=== PATIENT | male | born 1940 | race Two or more races ===

== ENCOUNTER 2025-06-02 09:19 | Emergency (ER) | payer OTHER, MEDICAID, SELFPAY ==
[2025-06-02 09:21] VITALS: BMI 21.9
[2025-06-02 09:33] VITALS: BP 99/59; PULSE 134; RESP 22; TEMP 36.9; O2SAT 98
--- NOTE | 2025-06-02 09:42 | EKG_ITS ---
[facility] Test Date: 2025-06-02 Pat Name: TRANG RODRIGUEZ Department: Room: - Gender: Male Spares Scheduler: : 1940 Requested By: Guilherme Claros Order Number: [id number] Reading MD: Guilherme Claros Measurements Intervals Marydel Rate: 90 P: 84 ND: 146 QRS: -4 QRSD: 140 T: 46 QT: 358 QTc: 440 Interpretive Statements SINUS RHYTHM RIGHT BUNDLE BRANCH BLOCK [120+ ms QRS DURATION, UPRIGHT V1, 40+ ms S IN I/aVL/V4/V5/V6] Compared to ECG 04/26/2024 21:41:14 Right bundle-branch block now present Atrial fibrillation no longer present Incomplete right bundle-branch block no longer present /store/S0/[id number].pdf
--- NOTE | 2025-06-02 09:42 | XR_ITS ---
Examination: CT abdomen and pelvis without contrast. Coronal 3-D reconstructions. Sagittal 2-D reconstructions. Date and time of exam:June 10002024, 1046 hrs., Comparison April 27, 2024 Indications: Lower abdominal pain with rectal bleeding beginning 10 days ago, history infrarenal abdominal aortic aneurysm CTDI: vol (mGy): 6.15 DLP: (mGycm): 371 Technique: Axial images of the abdomen have been obtained, 3 mm slice thickness Intravenous contrast material has not been administered. Low dose protocols were performed. One or more of the following dose reduction techniques were used; automated exposure control, adjustment of the mA and/or KV according to patient size, use of iterative reconstruction technique. Findings: Mild enlargement cardiac contour. Old right-sided fractures. No liver or splenic lesion. Gallbladder sludge versus small stones. No pancreatic or adrenal mass. Minimal perinephric stranding. No renal or ureteral calculi, no hydronephrosis Infrarenal abdominal aortic aneurysm, AP dimension 4.3 cm mediolateral dimension 4.1 cm Multiple fluid distended air distended small bowel loops Rectal wall axial image 212 is thickened Colonic diverticulosis Abundant stool in the colon Transverse prostate dimension 4.0 cm Fat-containing inguinal hernias Impression: Recommend hepatobiliary sonography to differentiate gallbladder sludge, small stones Infrarenal abdominal aortic aneurysm AP dimension 4.3 cm mediolateral dimension 4.1 cm Multiple mild to moderately fluid distended small bowel loops, consider ileus, enteritis, ileus early small bowel obstruction is a clinical consideration, recommend 3 view abdominal series follow-up Colonic diverticulosis, no diverticulitis Rectal wall is thickened, differential would include proctitis, early rectal tumor not excluded, recommend direct inspection
--- NOTE | 2025-06-02 09:42 | XR_ITS ---
Examination: AP chest single view Technique: AP semiupright portable chest single view Date and time: June 02, 10:52 AM, comparison April 26, 2024 Indications: Onset chest pain today by pain one year Findings: Mild prominence cardiac contour. Ectatic enlarged thoracic aorta. No pulmonary edema or pneumonia. Multiple old right-sided fractures. Impression: Mild prominence cardiac contour. No pneumonia or pulmonary edema.
--- NOTE | 2025-06-02 09:43 | PD.EDRME ---
Rapid Medical Screening Exam RME Arrival date/time: 06/02/25 09:19 84-year-old male with a history of atrial fibrillation presents to the emergency room with a chief complaint of rectal bleeding, 10 out of 10 abdominal pain, shortness of breath x 1 week I have greeted and performed a focused initial assessment of this patient. A comprehensive ED assessment and evaluation of the patient, analysis of all test results, and completion of the medical decision making process will be conducted by additional ED providers. Chief Complaint: Abdominal Pain Time Seen by Provider: 06/02/25 09:31 Vital signs: Vital Signs Temperature 98.5 F 06/02/25 09:33 Pulse Rate 134 H 06/02/25 09:33 Respiratory Rate 22 H 06/02/25 09:33 Blood Pressure 99/59 L 06/02/25 09:33 Pulse Oximetry (%) 98 06/02/25 09:33 Oxygen Delivery Method Room Air 06/02/25 09:33 Vital signs reviewed by provider: Yes
[2025-06-02 09:52] VITALS: BP 92/65; PULSE 134; RESP 27; TEMP 37.3; O2SAT 99
[2025-06-02] MEDS: ONDANSETRON INJ 2 MG/ML INJ 2 ML 4 MG IVP (10:29)
[2025-06-02] MEDS: fentaNYL CIT INJ 50 mCg/ML AMP 2ML 100 MCG IVP (10:30)
[2025-06-02] MEDS: SODIUM CHLORIDE 0.9% 1000 ML 1,000 ML 999 ML IV (10:31)
[2025-06-02 10:34] LABS: Basophils # (Auto) 0.1 Thou/mm3 (0.0-0.2); Basophils % (Auto) 1 % (0-2.5); Eosinophils # (Auto) 0.0 Thou/mm3 (0.0-0.5); Eosinophils % (Auto) 1 % (0-10); Hematocrit 28.6 % (41.0-53.0); Hemoglobin 9.7 g/dL (13.5-16.0); Immature Granulocytes Auto 0.31 Thou/mm3 (0.00-0.00); Lymphocytes # (Auto) 1.9 Thou/mm3 (1.0-4.8); Lymphocytes % (Auto) 31 % (10-50); Mean Corpuscular HGB Conc 33.9 g/dl (31.0-37.0); Mean Corpuscular Hemoglobin 33.3 pg (25.0-35.0); Mean Corpuscular Volume 98 fL (80-100); Monocytes # (Auto) 0.6 Thou/mm3 (0.0-0.8); Monocytes % (Auto) 10 % (0-12); Neutrophils # (Auto) 3.3 Thou/mm3 (1.8-7.7); Neutrophils % (Auto) 52 % (37-80); Nucleated Red Blood Cell # 0.00 Thou/mm3 (0.00-0.00); Nucleated Red Blood Cell % 0 /100 WBC (0); Platelet Count 300 Thou/mm3 (140-440); RDW Standard Deviation 61.5 fL (35.1-43.9); Red Blood Count 2.91 Miln/mm3 (4.50-5.90); White Blood Count 6.3 Thou/mm3 (3.8-10.6)
[2025-06-02 10:45] LABS: B-Type Natriuretic Peptide 56 pg/mL (0-100)
[2025-06-02 10:47] LABS: INR 1.0 (0.9-1.3); Partial Thromboplastin Time 21.4 Seconds (22.0-36.0); Prothrombin Time 11.4 Seconds (9.0-12.2)
[2025-06-02 10:57] LABS: Alanine Aminotransferase 19 U/L (10-49); Albumin, Serum 3.0 gm/dL (3.4-4.8); Albumin/Globulin Ratio 1.1 (1.2-2.2); Alkaline Phosphatase 81 U/L (46-116); Anion Gap 11 (7-16); Aspartate Amino Transferase 26 U/L (0-34); BUN/Creatinine Ratio 21 Ratio (12-20); Bilirubin,Total 0.3 mg/dL (0.3-1.2); Blood Urea Nitrogen 17 mg/dL (9-23); Calcium 8.6 mg/dL (8.3-10.6); Calcium (Corrected) 9.4 mg/dL (8.5-10.1); Carbon Dioxide 21.2 mMol/L (20.0-31.0); Chloride 103 mMol/L (98-107); Creatinine (Component) 0.8 mg/dL (0.6-1.3); Estimated Creatinine Clearance 65.5 mL/min (>60); Globulin 2.8 gm/dL (2.3-3.5); Glucose 94 mg/dL (74-106); Lipase 35 U/L (12-53); Osmolality,Calculated 271 (275-295); Potassium 4.5 mMol/L (3.4-5.1); Sodium 135 mMol/L (136-145); Total Protein 5.8 gm/dL (5.7-8.2); Troponin I < 0.002 ng/mL (0.0-0.045); eGFR > 60 See Note
[2025-06-02 11:08] VITALS: BP 105/75; PULSE 86; RESP 13; TEMP 36.5; O2SAT 96
[2025-06-02 11:27] LABS: Alcohol, Blood Medical < 3.0 mg/dL (0-10.0)
[2025-06-02 12:40] LABS: Collection Type, Urine Clean Catch
[2025-06-02 13:13] LABS: Bilirubin,Urine Negative (Negative); Clarity,Urine Clear (Clear/Hazy); Color,Urine Yellow (Lt Yel-Yel); Glucose, Urine Negative (Negative); Ketones,Urine Negative (Negative)
[2025-06-02 13:14] LABS: Blood,Urine Negative (Negative); Culture Indicated,Urine Not Indicated; Leukocyte Esterase,Urine Negative (Negative); Nitrite,Urine Negative (Negative); PH,Urine 6.0 (5.0-7.0); Protein,Urine Negative (Neg - Trace); RBC,Urine 1 /hpf (0-3); Specific Gravity,Urine 1.028 (1.001-1.035); Urobilinogen,Urine Negative mg/dL (0.0-1.0)
[2025-06-02 13:15] LABS: Squamous Epithelial Cell,Urine 1 /hpf (0-5); WBC,Urine 1 /hpf (0-5)
[2025-06-02 13:16] VITALS: BP 108/71; PULSE 90; RESP 18; O2SAT 98
--- NOTE | 2025-06-02 14:07 | EDNOTE_ITS ---
ED Abdominal Pain RME/HPI General Chief Complaint: Abdominal Pain Stated complaint: ABD PAIN X 3 MON, BODY ACHE X 1 YR, MOUTH PAIN Time seen by provider: 06/02/25 09:31 Arrival date/time: 06/02/25 09:19 RME / HPI RME / HPI narrative: 06/02/25 09:19 84-year-old male with a history of atrial fibrillation presents to the emergency room with a chief complaint of rectal bleeding, 10 out of 10 abdominal pain, shortness of breath x 1 week I have greeted and performed a focused initial assessment of this patient. A comprehensive ED assessment and evaluation of the patient, analysis of all test results, and completion of the medical decision making process will be conducted by additional ED providers. DR. ALICIA MAIN ED EVALUATION 84 year old male with a history of hypertension and atrial fibrillation presents to the ED with complaint of abdominal pain. States the pain began intermittently approximately one month ago and worsening in the last week. The pain is described as aching and located most to the epigastric region, rating as moderate. Associated with subjective fevers, a change in stool consistency, and generalized weakness. The patient reports that his stool has become sticky and adheres to the toilet bowl. Over the past four days, he has been consuming only water and milk due to oral pain. No other associated symptoms reported. Related Data Previous Rx's ?Medication ?Instructions ?Recorded omeprazole 20 mg capsule,delayed 20 mg PO QDAY #30 cap s 05/04/24 release quetiapine 100 mg tablet 50 mg (1/2 x 100 mg) PO QDAY #30 05/04/24 tabs Allergies Allergy/AdvReac Type Severity Reaction Status Date / Time No Known Allergies Allergy Verified 06/02/25 09:23 Review of Systems Review of Systems Systems Reviewed: All systems reviewed, normal except as documented Past Medical History Past Medical History MUSCULOSKELETAL: Positive Musculoskeletal Disorders, Arthritis and Osteoporosis ENT: Positive Cataracts Family History FAMILY HISTORY: Negative Family Neurologic Problems, Family Psychiatric Problems, Family Respiratory Disorders, Family Cardiac Disorders, Family Gastrointestinal Problems, Family Cancer, Family Surgery or Family Anesthesia Reaction Social History SMOKING STATUS: Never smoker ED Exam Narrative Physical exam: GENERAL APPEARANCE: alert and oriented x 4, well-developed, well-nourished, no acute distress HEENT: Normocephalic, atraumatic; pupils equal, round, reactive to light; EOMI; mucous membranes pink, moist; oropharynx clear NECK: Supple LUNGS: CTABL; no wheezes, no rales, no rhonchi HEART: Regular rate, regular rhythm; normal S1, S2; no murmurs ABDOMEN: distended; high pitched and active BS; soft, no tenderness, no guarding, no rebound; no masses, no organomegaly, no hernia BACK: no CVA tenderness EXTREMITIES: atraumatic; no edema NEUROLOGIC: awake; alert and oriented x4; cranial nerves II-XII grossly intact; no focal sensory or motor deficits PSYCHIATRIC: appropriate mood and affect SKIN: warm, dry, normal color; no rashes Course Quality Measures none Orders Category Date Time Status Bedside COVID-19 Antigen Test NOW Care 06/02/25 10:11 Completed Bedside Influenza A&B Antigen Test NOW Care 06/02/25 10:11 Completed EKG (ED ONLY) *Do not use* NOW Care 06/02/25 09:42 Completed Insert IV STAT Care 06/02/25 09:[address] abdomen pelvis wo con Stat Exams 06/02/25 09:42 Completed EKG (ED Only) Stat Exams 06/02/25 09:42 Draft XR chest 1V portable Stat Exams 06/02/25 09:42 Completed Alcohol, Blood Medical Stat Lab 06/02/25 10:02 Completed B-Type Natriuretic Peptide Stat Lab 06/02/25 10:02 Completed CBC Stat Lab 06/02/25 10:02 Completed CMP [Comprehensive Metabolic Panel] Stat Lab 06/02/25 10:02 Completed Lipase Stat Lab 06/02/25 10:02 Completed Partial Thromboplastin Time Stat Lab 06/02/25 10:02 Completed Prothrombin Time with INR Stat Lab 06/02/25 10:02 Completed Troponin I Stat Lab 06/02/25 10:02 Completed Type and Screen Stat Lab 06/02/25 10:02 Completed Urinalysis, C/S if Indicated Stat Lab 06/02/25 12:27 Completed Urine Culture Stat Lab 06/02/25 12:27 Received Morphine Inj Med 06/02/25 09:44 Discontinued 4 mg IVP X1 ONE Ondansetron Inj [Zofran Inj] Med 06/02/25 09:44 Discontinued 4 mg IVP X1 ONE Sodium Chloride 0.9% 1000 ml [Ns] 1,000 ml Med 06/02/25 09:44 Discontinued IV 999 mls/hr fentaNYL INJ [Sublimaze Inj] Med 06/02/25 10:15 Discontinued 100 mcg IVP X1 ONE Vital Signs Vital signs: Vital Signs Temperature 98.5 F 06/02/25 09:33 Pulse Rate 134 H 06/02/25 09:33 Respiratory Rate 22 H 06/02/25 09:33 Blood Pressure 99/59 L 06/02/25 09:33 Pulse Oximetry (%) 98 06/02/25 09:33 Oxygen Delivery Method Room Air 06/02/25 09:33 Pulse ox is 98% on room air which is adequate. Abdominal Pain MDM MDM Narrative MDM Narrative:: I, Julianne Charles, emiliana scribing for and in the presence of Dr. Alicia. I spoke with resident Dr. Aguilera. Discussed patients PMHx, HPI, ED course, exam findings, labs, and radiology results. The hospitalist agree to accept the patient for admission. 1520: RN reports the patient does not want to stay and refused admission. Patient data External records reviewed:: [facility] previous records (I reviewed admission from 04/26/2024 through 05/06/2024 ) Clinical information provided by:: patient Social determinants that could affect healthcare access:: none Patient has the following chronic illnesses:: Atrial fibrillation? How is presenting disease/condition affected by chronic disease/condition?: uneffected by Evaluation data The following diagnostics were reviewed and interpreted by me:: lab results, radiology exam(s) and EKG tracing(s) (06/02/2025 @ 10:01 AM. NSR, rate 90, RBBB, no acute ischemic changes, no STEMI. ) Lab and/or radiology exams considered but not ordered:: None Interpretation Summary: Ordering Physician: Guilherme Ruano Date of Service: 06/02/25 Procedure(s): CT abdomen pelvis wo con Accession Number(s): [id number] cc: Pankaj Eli PA-C; Guilherme Ruano; Elia Galicia MD~ Examination: CT abdomen and pelvis without contrast. Coronal 3-D reconstructions. Sagittal 2-D reconstructions. Date and time of exam:June 10002024, 1046 hrs., Comparison April 27, 2024 Indications: Lower abdominal pain with rectal bleeding beginning 10 days ago, history infrarenal abdominal aortic aneurysm CTDI: vol (mGy): 6.15 DLP: (mGycm): 371 Technique: Axial images of the abdomen have been obtained, 3 mm slice thickness Intravenous contrast material has not been administered. Low dose protocols were performed. One or more of the following dose reduction techniques were used; automated exposure control, adjustment of the mA and/or KV according to patient size, use of iterative reconstruction technique. Findings: Mild enlargement cardiac contour. Old right-sided fractures. No liver or splenic lesion. Gallbladder sludge versus small stones. No pancreatic or adrenal mass. Minimal perinephric stranding. No renal or ureteral calculi, no hydronephrosis Infrarenal abdominal aortic aneurysm, AP dimension 4.3 cm mediolateral dimension 4.1 cm Multiple fluid distended air distended small bowel loops Rectal wall axial image 212 is thickened Colonic diverticulosis Abundant stool in the colon Transverse prostate dimension 4.0 cm Fat-containing inguinal hernias Impression: Recommend hepatobiliary sonography to differentiate gallbladder sludge, small stones Infrarenal abdominal aortic aneurysm AP dimension 4.3 cm mediolateral dimension 4.1 cm Multiple mild to moderately fluid distended small bowel loops, consider ileus, enteritis, ileus early small bowel obstruction is a clinical consideration, recommend 3 view abdominal series follow-up Colonic diverticulosis, no diverticulitis Rectal wall is thickened, differential would include proctitis, early rectal tumor not excluded, recommend direct inspection Dictated By: Elia Galicia MD Signed By: <Electronically signed by Elia Galicia MD in OV> 06/02/25 1129 Ordering Physician: Guilherme Ruano Date of Service: 06/02/25 Procedure(s): XR chest 1V portable Accession Number(s): [id number] cc: Pankaj Eli PA-C; Guilherme Ruano; lEia Galicia MD~ Examination: AP chest single view Technique: AP semiupright portable chest single view Date and time: June 02, 10:52 AM, comparison April 26, 2024 Indications: Onset chest pain today by pain one year Findings: Mild prominence cardiac contour. Ectatic enlarged thoracic aorta. No pulmonary edema or pneumonia. Multiple old right-sided fractures. Impression: Mild prominence cardiac contour. No pneumonia or pulmonary edema. Dictated By: Elia Galicia MD Signed By: <Electronically signed by Elia Galicia MD in OV> 06/02/25 1124 Medications / Prescriptions Medications or Prescriptions considered but not ordered:: None Medication administrations:: Medication Administration History Discontinued Medications Fentanyl Citrate (Fentanyl Cit Inj 50 Mcg/Ml Amp 2ml) 100 mcg IVP X1 ONE Stop: 06/02/25 10:16 Last Admin: 06/02/25 10:30 Dose: 100 mcg Documented By: BIANCA Sodium Chloride (Ns) 1,000 mls @ 999 mls/hr IV .Q1H1M ONE Stop: 06/02/25 10:44 Last Infusion: 06/02/25 12:17 Dose: Infused Documented By: Admin: 06/02/25 10:31 Dose: 999 mls/hr Documented By: BIANCA Morphine Sulfate (Morphine Sulf Inj 10 Mg/Ml Vial) 4 mg IVP X1 ONE Stop: 06/02/25 09:45 Last Admin: 06/02/25 10:26 Dose: Not Given Documented By: BIANCA Non-Admin Reason: Cancelled by Provider Ondansetron HCl (Ondansetron Inj 2 Mg/Ml Inj 2 Ml) 4 mg IVP X1 ONE; Protocol Stop: 06/02/25 09:45 Last Admin: 06/02/25 10:29 Dose: 4 mg Documented By: BIANCA See above Consultations Consultation(s) initiated? (list below): Yes Consultation #1 (Physician, Specialty, Details): See MDM Diagnosis Differential diagnosis abdominal pain: abdominal pain, constipation, diverticulitis and small bowel obstruction Most likely diagnosis given after review of the tests above:: Ileus abdominal pain abdominal distention Admission Indicated Admission indicated?: indicated Explain why admission is indicated or not indicated:: Admission was indicated. However, patient signed out AMA. Admission Request Was there a request for admission?: No Disposition Plan Disposition Plan: other (specify) (Patient left AMA) Discharge Plan Plan Patient Disposition: Left Against Medical Advice Prescriptions/Referrals Prescriptions/Med Rec: No Action omeprazole 20 mg capsule,delayed release(DR/EC) 20 mg PO QDAY Qty: 30 1RF quetiapine 100 mg tablet 50 mg PO QDAY Qty: 30 1RF Referrals: Pankaj Eli PA-C [Primary Care Provider] - In 1 week Problem List Clinical Impression: Abdominal pain, Ileus, Abdominal distension Patient/Caregiver Discharge Instructions Print Language: Guyanese
--- NOTE | 2025-06-02 15:29 | PC.NURSE ---
PATIENT SIGNED AND LEFT AMA. PATIENT STATED THAT HE DID NOT WANT TO BE ADMITTED AND THAT HE WAS LEAVING. PATIENT ALERT AND ORIENTED X4. PATIENT STATED THAT EVEN OF NURSE GOT ON HER KNEE AND BEGGED HIM TO STAY HE WASN'T GOING TO STAY AND WAS GOING TO LEAVE. CARE PROVIDER AT BEDSIDE, CARE PROVIDER VERBALIZED THAT WHEN PATIENT MADE HIS MIND UP ABOUT SOMETHING THAT HE WOULD NOT CHANGE HIS MIND. RISK OF LEAVING AMA EXPLAINED TO PATIENT INCLUDING THE POSSIBILITY OF , PATIENT VERBALIZED UNDERSTANDING. DR. JEROME AND DR. ANG MADE AWARE OF PATIENT LEAVING AMA.
== END 2025-06-02 15:34 | disposition left against medical advice (07) ==
PROVIDERS: Nurse Practitioner Family; Emergency Provider Emergency Medicine; PCP Student in an Organized Health Care Education/Training Program
DX: K56.7 Ileus, unspecified (principal); K57.30 Diverticulosis of large intestine without perforation or abscess without bleeding; I71.43 Infrarenal abdominal aortic aneurysm, without rupture; I45.10 Unspecified right bundle-branch block; I10 Essential (primary) hypertension; I48.91 Unspecified atrial fibrillation; Z53.29 Procedure and treatment not carried out because of patient's decision for other reasons
CPT/HCPCS: 36415; 71045; 74176; 80053; 80320; 81001; 83690; 83880; 84484; 85025; 85610; 85730; 86850; 86900; 86901; 87086; 87400; 87811; 93005; 96374; 96375; 99284; J2405; J3010; J7030; G0480

== ENCOUNTER 2025-07-01 08:53 | Outpatient (RCR) | payer OTHER, MEDICAID, SELFPAY ==
--- NOTE | 2025-07-06 21:48 | CTCCONSULT_ITS ---
Patient: TRANG ALONZO : 1940 MR#: [id number] Page 3 of 5 CONSULTATION NOTE DATE OF CONSULTATION: 07/01/2025 NAME: TRANG ALONZO ACCOUNT: [id number] : 1940 AGE: 84 REFERRING PHYSICIAN: Pankaj Eli MD PRIMARY PHYSICIAN: Pankaj Eli MD REASON FOR VISIT: Mark Royal, a male with history of myelodysplastic syndrome ruled out (2018), presented for follow-up after recent hospitalizations for melena and newly diagnosed colon cancer. During hospitalization (June 08-2024), workup revealed multiple ileal ulcers and incidental finding of invasive moderately differentiated adenocarcinoma in a sigmoid colon polyp. Management includes CT chest/abdomen/pelvis for staging, iron studies, CEA level, referral to colorectal surgeon, and treatment planning based on final staging (surveillance for stage 1, chemotherapy for stages 2- Subjective History of Present Illness Mark Royal is a patient with a history of myelodysplastic syndrome presenting for follow-up after recent hospitalizations due to gastrointestinal bleeding and newly diagnosed colon cancer. The patient was initially seen in 2018 for MDS, with no evidence of leukemia or lymphoma at that time, but did not return for follow-up until now. The patient recently experienced episodes of melena, leading to two hospital admissions. He first presented to [facility] on June 08 with melena. Despite negative findings on EGD, colonoscopy, and nuclear medicine RBC scan, he was readmitted on June 14 due to recurrent melena. He was then transferred to [facility] on June 15 and discharged on June 19. During this hospitalization, a capsule study showed no active bleeding but raised concern for Meckel's diverticulum. A retrograde double-balloon endoscopy revealed multiple ulcers in the ileum. The patient did not require blood transfusions during these admissions. Significantly, a pathology report from a sigmoid colon biopsy revealed invasive moderately differentiated adenocarcinoma arising from an adenoma with high-grade dysplasia. This finding was incidental, discovered in a small polyp removed during the procedure. The patient was informed that he has colon cancer, which will require further evaluation and treatment. Medical History - Myelodysplastic syndrome evaluated in 2019 - Hospitalization for melena on June 08, 2025 - Repeat hospitalization for melena on June 14, 2025, transferred to another hospital on June 15, 2025, and discharged on June 19, 2025 Surgical History - Colonoscopy with polypectomy, sigmoid colon Review of Systems Gastrointestinal: Positive for melena. Objective Laboratory, Imaging, and Diagnostic Test Results - Colonoscopy: Negative for acute bleed - Nuclear medicine RBC scan: Negative for bleed - Capsule study: No active bleeding, concern for Meckel's diverticulum - Retrograde double-balloon endoscopy: Multiple ulcers in the ileum - Pathology report: - Colon sigmoid: Invasive moderately differentiated adenocarcinoma arising from adenoma with high-grade dysplasia - Ileocecal valve: Tubular adenoma - Colon sigmoid polyp: Cancer detected Assessment and Plan Mark Royal is a male with a history of myelodysplastic syndrome presenting after recent diagnosis of 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 Sigmoid colon adenocarcinoma Assessment: Patient was recently hospitalized from June 08-2024 for melena. Initial workup including EGD, colonoscopy, and nuclear medicine RBC scan were negative for active bleeding. Capsule study showed concern for Meckel's diverticulum. Retrograde double-balloon endoscopy revealed multiple ileal ulcers. Pathology from sigmoid colon biopsy showed invasive moderately differentiated adenocarcinoma arising from adenoma with high grade dysplasia. Additional findings included tubular adenoma at ileocecal valve and sigmoid polyp. Cancer was found within a small polyp that was removed. Staging is pending but likely stage 1 or 2 given the polyp-based presentation. Complete staging will determine treatment approach - stage 1 requires surveillance only, stages 2-3 require chemotherapy, and stage 4 is incurable but treatable with chemotherapy. Plan: - Order CT scan chest, abdomen, and pelvis to evaluate for lymphadenopathy and metastatic disease - Order iron studies to assess for iron deficiency - Order CEA level and cancer markers - Referral to colorectal surgeon Dr. Caceres at [facility] for surgical evaluation and staging - Follow-up in 6 weeks after surgical consultation for complete staging results - Future management based on final staging: surveillance colonoscopy every 3-5 years if stage 1, chemotherapy if stages 2-4 History of myelodysplastic syndrome Assessment: Patient was previously evaluated by Dr. Kent in 2019 for MDS with complete workup including labs. Testing at that time was negative for leukemia and lymphoma. Patient was lost to follow-up after initial evaluation. Plan: - No active management discussed for MDS at this visit OTHER MEDICAL HISTORY/CONDITIONS: Invasivie adenocarcinoma sogmoid colon- dx 06/10/25 Atrial fibrillation/atrial flutter AAA Arthritis Osteoporosis Spinal stenosis Peripheral neuropathy Schiziphrenia Right?and?left?TKA?-?3?yrs?ago FAMILY HISTORY: Patient?denies?family?cancer?history. 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 Tobacco?Use:?Denies ETOH?Use:?Denies Drug?Note:?Denies Social?History?Note:?Lives?alone MEDICATIONS: 1. amiodarone - 200 mg 1 tab Twice a Day 2. docusate sodium - 100 mg 1 tab Twice a Day 3. gabapentin - 300 mg 1 Capsule Three times a day 4. HYDROcodone-acetaminophen - 10-325 mg 1 tab OVER 6 HOURS 5. omeprazole - 20 mg 1 Capsule Daily 6. traZODone - 50 mg 1 tab Every day before sleep 7. zinc gluconate - 100 mg 1 tab Daily Medications Last Reconciled by Megan Dougherty RN on 07/01/2025 ALLERGIES: REVIEW OF SYSTEMS: A complete 14-point review of systems was performed and is negative except as noted in interval history. PHYSICAL EXAMINATION: VITAL SIGNS: Temperature?98.6, B/P?118/81, Height?68?inches, Oxygen?Saturation?97% Weight?145?lbs PAIN: 0 - No pain GENERAL APPEARANCE: Appears well, in no apparent distress, appropriately interactive. HEENT: Normocephalic, no temporal wasting, normal conjunctiva, no scleral icterus, normal hearing, lips without lesions, neck normal range of motion. CARDIOVASCULAR: Not assessed. PULMONARY: Normal respiratory effort, no respiratory distress or use of accessory muscles, speaking in full sentences, no tachypnea. EXTREMITIES: No pedal edema or cyanosis. SKIN: Normal skin appearance. NEUROLOGIC: Alert and oriented x4. PSHYCHIATRIC: Appropriate affect, mood normal, behavior normal, intact thought and speech. LABORATORY DATA: I have personally reviewed and interpreted each of the patient?s relevant lab tests, abnormal findings are below: Date 07/01/25 ??WHITE?BLOOD?COUNT?(Thou/mm3) 5.4 ??RED?BLOOD?COUNT?(Miln/mm3) 3.04?L ??HEMOGLOBIN?(gm/dl) 9.6?L ??HEMATOCRIT?(%) 30.3?L ??PLATELET?COUNT?(Thou/mm3) 224 ??NEUTROPHILS?%,?AUTO?(%) 71 ??LYMPH?%,?AUTO?(%) 23 ??NEUTROPHILS,?AUTO?(Thou/mm3) 3.8 ??GLUCOSE,RANDOM?(mg/dL) 95 ??BLOOD?UREA?NITROGEN?(mg/dL) 11 ??CREATININE?(mg/dL) 1.10 ??SODIUM?(mmol/L) 136 ??POTASSIUM?(mmol/L) 4.7 ??CHLORIDE?(mmol/L) 103 ??CrCl?(CandG)?(ml/min) 48.17 ??AST/SGOT?(Unit/L) 17 ??ALT/SGPT?(Unit/L) 8?L ??ALKALINE?PHOSPHATASE?(Unit/L) 109 ??BILIRUBIN,?TOTAL?(mg/dL) 0.4 ??PROTEIN?TOTAL?(gm/dl) 5.9 ??ALBUMIN,?SERUM?(gm/dl) 3.6 ??GLOBULIN?(gm/dl) 2.3 ??ALBUMIN/GLOBULIN?RATIO 1.6 ??CALCIUM,?SERUM?(mg/dL) 9.0 ??CALCIUM?SERUM?(CORRECTED)?(mg/dL) 9.3 ??CEA?(O*)?(ng/ml) 1.2 ??TOTAL?IRON?BINDING?CAP?(S*)?(mcg/dL) 297 ??UNBOUND?IBC?(mcg/dL) 271 ORDERS: Order # Description [id number] Ferritin + Folic Acid; Serum + Vitamin B-12 + Iron Panel [id number] CEA [id number] CBC with Auto Diff + Comprehensive Metabolic Panel - 12 [id number] Initial PET/CT of Skull to Mid-Thigh [id number] RETURN TO CLINIC: I reviewed the diagnosis, prognosis, and recommended treatment/procedure options with the patient (and/or their legal scheduling representative), including the potential benefits, risks, side effects and alternative therapies. We also discussed the option of no treatment and the possibility of clinical trial participation, if applicable. All questions were addressed, and they demonstrated understanding. They provided informed consent to proceed with the proposed plan of care. BILLING AND COMPLIANCE: I reviewed external records from providers outside my specialty as summarized above. I spent a total of 50 minutes on this patient?s care on the day of their visit excluding time spent related to any billed procedures. This time includes time spent with the patient as well as time spent documenting in the medical record, reviewing patients records and tests, obtaining history, placing orders, communicating with other healthcare professionals, counseling the patient, family or caregiver, and/or care coordination for the diagnoses above. Electronically Signed by: Valentin Alexis MD T: 9:46 PM CC: PCP: Pankaj Eli Referring: Pankaj Eli This document was completed utilizing speech recognition software. Grammatical errors, random word insertions, pronoun errors, and incomplete sentences are an occasional consequence of this system due to software limitations, ambient noise, and hardware issues. Any formal questions or concerns about the content, text or information contained within the body of this dictation should be directly addressed to the provider for clarification.
== END 2025-07-01 23:59 | disposition home or self-care (01) ==
LOC: SCTC 08:53
PROVIDERS: PCP Student in an Organized Health Care Education/Training Program; Referring Provider Student in an Organized Health Care Education/Training Program; Visit Provider Internal Medicine Hematology & Oncology
DX: C18.7 Malignant neoplasm of sigmoid colon (principal); D46.9 Myelodysplastic syndrome, unspecified
CPT/HCPCS: 99213; G0463

== ENCOUNTER → 2025-07-01 | Outpatient (CLI) | payer OTHER, MEDICAID, SELFPAY ==
[2025-07-01 13:28] LABS: Basophils # (Auto) 0.0 Thou/mm3 (0.0-0.2); Basophils % (Auto) 0 % (0-2.5); Eosinophils # (Auto) 0.1 Thou/mm3 (0.0-0.5); Eosinophils % (Auto) 1 % (0-10); Hematocrit 30.3 % (41.0-53.0); Hemoglobin 9.6 g/dL (13.5-16.0); Immature Granulocytes Auto 0.03 Thou/mm3 (0.00-0.00); Lymphocytes # (Auto) 1.2 Thou/mm3 (1.0-4.8); Lymphocytes % (Auto) 23 % (10-50); Mean Corpuscular HGB Conc 31.7 g/dl (31.0-37.0); Mean Corpuscular Hemoglobin 31.6 pg (25.0-35.0); Mean Corpuscular Volume 100 fL (80-100); Monocytes # (Auto) 0.2 Thou/mm3 (0.0-0.8); Monocytes % (Auto) 4 % (0-12); Neutrophils # (Auto) 3.8 Thou/mm3 (1.8-7.7); Neutrophils % (Auto) 71 % (37-80); Nucleated Red Blood Cell # 0.00 Thou/mm3 (0.00-0.00); Nucleated Red Blood Cell % 0 /100 WBC (0); Platelet Count 224 Thou/mm3 (140-440); RDW Standard Deviation 66.3 fL (35.1-43.9); Red Blood Count 3.04 Miln/mm3 (4.50-5.90); White Blood Count 5.4 Thou/mm3 (3.8-10.6)
[2025-07-01 13:44] LABS: Carcinoembryonic Antigen 1.2 ng/mL (0.0-5.0); Folate 10.78 ng/mL (>5.38); Vitamin B12 1952 pg/mL (211-911)
[2025-07-01 13:50] LABS: Ferritin 91 ng/mL (10.5-307.3); Iron 26 mcg/dL (65-175); Percent Iron Saturation 8 % (20-55); Total Iron Binding Capacity 297 mcg/dL (250-425); Unsaturated Iron Binding 271 (225-295)
[2025-07-01 13:53] LABS: Alanine Aminotransferase 8 U/L (10-49); Albumin, Serum 3.6 gm/dL (3.4-4.8); Albumin/Globulin Ratio 1.6 (1.2-2.2); Alkaline Phosphatase 109 U/L (46-116); Anion Gap 7 (7-16); Aspartate Amino Transferase 17 U/L (0-34); BUN/Creatinine Ratio 10 Ratio (12-20); Bilirubin,Total 0.4 mg/dL (0.3-1.2); Blood Urea Nitrogen 11 mg/dL (9-23); Calcium 9.0 mg/dL (8.3-10.6); Calcium (Corrected) 9.3 mg/dL (8.5-10.1); Carbon Dioxide 26.1 mMol/L (20.0-31.0); Chloride 103 mMol/L (98-107); Creatinine (Component) 1.1 mg/dL (0.6-1.3); Globulin 2.3 gm/dL (2.3-3.5); Glucose 95 mg/dL (74-106); Osmolality,Calculated 271 (275-295); Potassium 4.7 mMol/L (3.4-5.1); Sodium 136 mMol/L (136-145); Total Protein 5.9 gm/dL (5.7-8.2); eGFR > 60 See Note
== END | disposition home or self-care (01) ==
PROVIDERS: PCP Student in an Organized Health Care Education/Training Program; Referring Provider Internal Medicine Hematology & Oncology; Visit Provider Internal Medicine Hematology & Oncology
DX: D72.829 Elevated white blood cell count, unspecified (principal)
CPT/HCPCS: 36415; 80053; 82378; 82607; 82728; 82746; 83540; 83550; 85025

== ENCOUNTER 2025-09-05 10:28 | Outpatient (RCR) | payer OTHER, MEDICAID, SELFPAY ==
--- NOTE | 2025-09-29 03:51 | CTCFLWUP_ITS ---
Patient: TRANG ALONZO : 1940 Page 4 of 6 FOLLOW UP NOTE DATE OF SERVICE: 09/05/2025 NAME: TRANG ALONZO ACCOUNT: [id number] : 1940 AGE: 84 INTERVAL HISTORY: Follow up on colon cancer ONCOLOGY HISTORY: DIAGNOSIS: Colon cancer Hx of MDS DATE OF DIAGNOSIS: 06/10/2025 STAGE/TNM: Likely stage 1 colon cancer TREATMENT HISTORY: Care?Plan Start?Date Cycle Day Intent HISTORY OF PRESENT ILLNESS: Patient with MDS had hospitalizations due to gastrointestinal bleeding and newly diagnosed colon cancer. The patient recently experienced episodes of melena, leading to two hospital admissions. He first presented to [facility] on June 08 with melena. Despite negative findings on E60, colonoscopy, and nuclear medicine RBC scan, he was readmitted on June 14 due to recurrent melena. [place] [facility] discharged on June 19. During this hospitalization, a capsule study showed no active bleeding but raised concern for Meckel's diverticulum. A retrograde double- balloon endoscopy revealed multiple ulcers in the ileum. The patient did not require blood transfusions during these admissions. Signi?cantly, a pathology report from a sigmoid colon biopsy revealed invasive moderately differentiated adenocarcinoma arising from an adenoma with high-grade dysplasia. This finding was incidental, discovered in a small polyp removed during the procedure. Patient was seen by surgeon and evaluated and pathology report reviewed and no further treatment or residual cancer was found. PET scan have hypermeabolism but no ct finding so will follow nickie. OTHER MEDICAL HISTORY/CONDITIONS: Invasivie adenocarcinoma sogmoid colon- dx 06/10/25 Atrial fibrillation/atrial flutter AAA Arthritis Osteoporosis Spinal stenosis Peripheral neuropathy Schiziphrenia Right?and?left?TKA?-?3?yrs?ago FAMILY HISTORY: Patient?denies?family?cancer?history. 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 Tobacco?Use:?Denies ETOH?Use:?Denies Drug?Note:?Denies Social?History?Note:?Lives?alone MEDICATIONS: 1. amiodarone - 200 mg 1 tab Twice a Day 2. docusate sodium - 100 mg 1 tab Twice a Day 3. gabapentin - 300 mg 1 Capsule Three times a day 4. HYDROcodone-acetaminophen - 10-325 mg 1 tab OVER 6 HOURS 5. omeprazole - 20 mg 1 Capsule Daily 6. traZODone - 50 mg 1 tab Every day before sleep 7. zinc gluconate - 100 mg 1 tab Daily Medications Last Reconciled by Pat Cordero MD on 09/05/2025 ALLERGIES: REVIEW OF SYSTEMS: A complete 14-point review of systems was performed and is negative except as noted in interval history. PHYSICAL EXAMINATION: VITAL SIGNS: Temperature?97.8, B/P?122/74, Oxygen?Saturation?98% Weight?145?lbs PAIN: 0 - No pain ECOG Performance Status: 0 - Asymptomatic and fully active GENERAL APPEARANCE: Appears well, in no apparent distress, appropriately interactive. HEENT: Normocephalic, no temporal wasting, normal conjunctiva, no scleral icterus, normal hearing, lips without lesions, neck normal range of motion. CARDIOVASCULAR: Not assessed. PULMONARY: Normal respiratory effort, no respiratory distress or use of accessory muscles, speaking in full sentences, no tachypnea. EXTREMITIES: No pedal edema or cyanosis. SKIN: Normal skin appearance. NEUROLOGIC: Alert and oriented x4. PSHYCHIATRIC: Appropriate affect, mood normal, behavior normal, intact thought and speech. LABORATORY DATA: I have personally reviewed and interpreted each of the patient?s relevant lab tests, abnormal findings are below: Date 07/01/25 ??WHITE?BLOOD?COUNT?(Thou/mm3) 5.4 ??RED?BLOOD?COUNT?(Miln/mm3) 3.04?L ??HEMOGLOBIN?(gm/dl) 9.6?L ??HEMATOCRIT?(%) 30.3?L ??PLATELET?COUNT?(Thou/mm3) 224 ??NEUTROPHILS?%,?AUTO?(%) 71 ??LYMPH?%,?AUTO?(%) 23 ??NEUTROPHILS,?AUTO?(Thou/mm3) 3.8 ??GLUCOSE,RANDOM?(mg/dL) 95 ??BLOOD?UREA?NITROGEN?(mg/dL) 11 ??CREATININE?(mg/dL) 1.10 ??SODIUM?(mmol/L) 136 ??POTASSIUM?(mmol/L) 4.7 ??CHLORIDE?(mmol/L) 103 ??CrCl?(CandG)?(ml/min) 48.17 ??AST/SGOT?(Unit/L) 17 ??ALT/SGPT?(Unit/L) 8?L ??ALKALINE?PHOSPHATASE?(Unit/L) 109 ??BILIRUBIN,?TOTAL?(mg/dL) 0.4 ??PROTEIN?TOTAL?(gm/dl) 5.9 ??ALBUMIN,?SERUM?(gm/dl) 3.6 ??GLOBULIN?(gm/dl) 2.3 ??ALBUMIN/GLOBULIN?RATIO 1.6 ??CALCIUM,?SERUM?(mg/dL) 9.0 ??CALCIUM?SERUM?(CORRECTED)?(mg/dL) 9.3 ??CEA?(O*)?(ng/ml) 1.2 ??TOTAL?IRON?BINDING?CAP?(S*)?(mcg/dL) 297 ??UNBOUND?IBC?(mcg/dL) 271 ASSESSMENT/PLAN: Stage 1 colon cancer Patient was recently hospitalized from June 08-2024 for melena. Initial workup including EGD, colonoscopy, and nuclear medicine RBC scan were negative for active bleeding. Capsule study showed concern for Meckel's diverticulum. Retrograde double-balloon endoscopy revealed multiple ileal ulcers. Pathology from sigmoid colon biopsy showed invasive moderately differentiated adenocarcinoma arising from adenoma with high grade dysplasia. Additional findings included tubular adenoma at ileocecal valve and sigmoid polyp. Cancer was found within a small polyp that was removed. Staging is pending but likely stage 1 or 2 given the polyp-based presentation. Complete staging will determine treatment approach - stage 1 requires surveillance only, stages 2-3 require chemotherapy, and stage 4 is incurable but treatable with chemotherapy. PET/CT showed hypermetabolsim but no mass on CT No other activity Likely inflammation at site of polyp removal Will follow with colonoscopy with surgeon No chemo indicated History of myelodysplastic syndrome Assessment: Patient was previously evaluated by Dr. Kent in 2019 for MDS with complete workup including labs. Testing at that time was negative for leukemia and lymphoma. Patient was lost to follow-up after initial evaluation. Plan: - No active management discussed for MDS at this visit OTHER MEDICAL HISTORY/CONDITIONS: Invasivie adenocarcinoma sogmoid colon- dx 06/10/25 Atrial fibrillation/atrial flutter AAA Arthritis Osteoporosis Spinal stenosis Peripheral neuropathy Schiziphrenia Right?and?left?TKA?-?3?yrs?ago FAMILY HISTORY: Patient?denies?family?cancer?history. 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 Tobacco?Use:?Denies ETOH?Use:?Denies Drug?Note:?Denies Social?History?Note:?Lives?alone MEDICATIONS: amiodarone - 200 mg 1 tab Twice a Day docusate sodium - 100 mg 1 tab Twice a Day gabapentin - 300 mg 1 Capsule Three times a day HYDROcodone-acetaminophen - 10-325 mg 1 tab OVER 6 HOURS omeprazole - 20 mg 1 Capsule Daily traZODone - 50 mg 1 tab Every day before sleep zinc gluconate - 100 mg 1 tab Daily Medications Last Reconciled by Megan Dougherty RN on 07/01/2025 ALLERGIES: REVIEW OF SYSTEMS: A complete 14-point review of systems was performed and is negative except as noted in interval history. PHYSICAL EXAMINATION: VITAL SIGNS: Temperature?98.6, B/P?118/81, Height?68?inches, Oxygen?Saturation?97% Weight?145?lbs PAIN: 0 - No pain GENERAL APPEARANCE: Appears well, in no apparent distress, appropriately interactive. HEENT: Normocephalic, no temporal wasting, normal conjunctiva, no scleral icterus, normal hearing, lips without lesions, neck normal range of motion. CARDIOVASCULAR: Not assessed. PULMONARY: Normal respiratory effort, no respiratory distress or use of accessory muscles, speaking in full sentences, no tachypnea. EXTREMITIES: No pedal edema or cyanosis. SKIN: Normal skin appearance. NEUROLOGIC: Alert and oriented x4. PSHYCHIATRIC: Appropriate affect, mood normal, behavior normal, intact thought and speech. LABORATORY DATA: I have personally reviewed and interpreted each of the patient?s relevant lab tests, abnormal findings are below: Date 07/01/25 ??WHITE?BLOOD?COUNT?(Thou/mm3) 5.4 ??RED?BLOOD?COUNT?(Miln/mm3) 3.04?L ??HEMOGLOBIN?(gm/dl) 9.6?L ??HEMATOCRIT?(%) 30.3?L ??PLATELET?COUNT?(Thou/mm3) 224 ??NEUTROPHILS?%,?AUTO?(%) 71 ??LYMPH?%,?AUTO?(%) 23 ??NEUTROPHILS,?AUTO?(Thou/mm3) 3.8 ??GLUCOSE,RANDOM?(mg/dL) 95 ??BLOOD?UREA?NITROGEN?(mg/dL) 11 ??CREATININE?(mg/dL) 1.10 ??SODIUM?(mmol/L) 136 ??POTASSIUM?(mmol/L) 4.7 ??CHLORIDE?(mmol/L) 103 ??CrCl?(CandG)?(ml/min) 48.17 ??AST/SGOT?(Unit/L) 17 ??ALT/SGPT?(Unit/L) 8?L ??ALKALINE?PHOSPHATASE?(Unit/L) 109 ??BILIRUBIN,?TOTAL?(mg/dL) 0.4 ??PROTEIN?TOTAL?(gm/dl) 5.9 ??ALBUMIN,?SERUM?(gm/dl) 3.6 ??GLOBULIN?(gm/dl) 2.3 ??ALBUMIN/GLOBULIN?RATIO 1.6 ??CALCIUM,?SERUM?(mg/dL) 9.0 ??CALCIUM?SERUM?(CORRECTED)?(mg/dL) 9.3 ??CEA?(O*)?(ng/ml) 1.2 ??TOTAL?IRON?BINDING?CAP?(S*)?(mcg/dL) 297 ??UNBOUND?IBC?(mcg/dL) 271 ORDERS: Order # Description RETURN TO CLINIC: I reviewed the diagnosis, prognosis, and recommended treatment/procedure options with the patient (and/or their legal practice representative), including the potential benefits, risks, side effects and alternative therapies. We also discussed the option of no treatment and the possibility of clinical trial participation, if applicable. All questions were addressed, and they demonstrated understanding. They provided informed consent to proceed with the proposed plan of care. BILLING AND COMPLIANCE: I reviewed external records from providers outside my specialty as summarized above. I spent a total of 50 minutes on this patient?s care on the day of their visit excluding time spent related to any billed procedures. This time includes time spent with the patient as well as time spent documenting in the medical record, reviewing patients records and tests, obtaining history, placing orders, communicating with other healthcare professionals, counseling the patient, family or caregiver, and/or care coordination for the diagnoses above. Electronically Signed by: {Object.Sanct_ID*PnP.NameFL@M}, {Object.Sanct_ID*PnP.Suffix@U} D: {Object.Sanct_Date} T: {Object.Sanct_Time} CC: PCP: Laura Nam Referring: Laura Nam This document was completed utilizing speech recognition software. Grammatical errors, random word insertions, pronoun errors, and incomplete sentences are an occasional consequence of this system due to software limitations, ambient noise, and hardware issues. Any formal questions or concerns about the content, text or information contained within the body of this dictation should be directly addressed to the provider for clarification.
== END 2025-10-01 23:59 | disposition home or self-care (01) ==
LOC: SCTC 10:28
PROVIDERS: PCP Family Medicine; Referring Provider Family Medicine; Visit Provider Internal Medicine Hematology & Oncology
DX: C18.7 Malignant neoplasm of sigmoid colon (principal); D46.9 Myelodysplastic syndrome, unspecified
CPT/HCPCS: 99212; G0463

== ENCOUNTER → 2025-09-09 | Outpatient (CLI) | payer OTHER, MEDICAID, SELFPAY ==
--- NOTE | 2025-09-09 09:30 | XR_ITS ---
EXAMINATION: PET/CT FUSION SKULL TO THIGH EXAM DATE AND TIME: September 09, 2025, 1035 hours, comparison CT abdomen pelvis June 02, 2025 INDICATIONS: Diagnosis elevated white blood cell count, unspecified, diagnosis malignant neoplasm of the colon, history lower abdominal pain and rectal bleeding June 2025 CTDI:vol (mGy) 4.88 DLP: (mGycm) 445.89 PROCEDURE: 16.3 mCi FDG was administered intravenously To allow for distribution and uptake of radiotracer, the patient was allowed to rest quietly in a shielded room. Imaging was performed on an integrated 16-slice PET/CT scanner, with scanning from the skull base to the mid thigh. Serum blood glucose at the time of the injection was measured 113 mg/dL. CT scanning was performed without oral or intravenous contrast material. FINDINGS: Head and Neck: There is no flo hypermetabolism in the neck. The visualized portions of the brain are normal in appearance on CT. Chest: There is no flo hypermetabolism in the chest. AP dimension ascending thoracic aorta 4.1 cm There are no pulmonary nodules. Abdomen and Pelvis: 18 mm hypermetabolic focus in the right colon, axial image 180 without obvious mass on the corresponding CT abdomen axial images AP dimension infrarenal abdominal aorta 4.3 cm Musculoskeletal: Marrow uptake is within normal range. 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
== END | disposition home or self-care (01) ==
PROVIDERS: PCP Internal Medicine Hematology & Oncology; Referring Provider Internal Medicine Hematology & Oncology; Visit Provider Internal Medicine Hematology & Oncology
DX: I71.21 Aneurysm of the ascending aorta, without rupture (principal); I71.40 Abdominal aortic aneurysm, without rupture, unspecified
CPT/HCPCS: 78815; A9552